=== PATIENT | male | born 1985 | race Caucasian/White ===

== ENCOUNTER 2017-10-30 02:28 | Emergency (ER) | payer SELFPAY ==
[~2017-10-30] VITALS: Ht 172.7 cm; Wt 95.3 kg
[2017-10-30 02:39] VITALS: Ht 172.7 cm; Wt 95.3 kg
[2017-10-30 04:28] VITALS: BP 152/86
== END 2017-10-30 04:28 | disposition home or self-care (01) ==
LOC: ED 02:28
DX: S90.121A Contusion of right lesser toe(s) without damage to nail, initial encounter (principal); X58.XXXA Exposure to other specified factors, initial encounter; Y93.89 Activity, other specified; Y92.89 Other specified places as the place of occurrence of the external cause; Y99.8 Other external cause status